=== PATIENT | male | born 1940 | race Caucasian/White ===

== ENCOUNTER → 2023-08-01 08:49 | Outpatient (BNVA) | payer MEDICARE, BC, SELFPAY | PROVIDERS: PCP Psychiatry & Neurology Neurology; Referring Provider Family Medicine; Visit Provider Psychiatry & Neurology Neurology | DX: G20.A1 Parkinson's disease without dyskinesia, without mention of fluctuations (principal); R29.2 Abnormal reflex; R35.1 Nocturia; G47.52 REM sleep behavior disorder; R49.8 Other voice and resonance disorders; I63.9 Cerebral infarction, unspecified | CPT/HCPCS: 99205 ==

== ENCOUNTER → 2023-10-10 10:26 | Outpatient (BNVA) | payer MEDICARE, BC, SELFPAY | PROVIDERS: PCP Psychiatry & Neurology Neurology; Referring Provider Psychiatry & Neurology Neurology; Visit Provider Psychiatry & Neurology Neurology | DX: G20.A1 Parkinson's disease without dyskinesia, without mention of fluctuations (principal); R29.2 Abnormal reflex; R35.1 Nocturia; G47.52 REM sleep behavior disorder; R49.8 Other voice and resonance disorders; I63.9 Cerebral infarction, unspecified | CPT/HCPCS: 99214 ==

== ENCOUNTER → 2024-02-18 10:59 | Outpatient (BNVA) | payer MEDICARE, BC, SELFPAY | PROVIDERS: PCP Family Medicine; Referring Provider Family Medicine; Visit Provider Psychiatry & Neurology Neurology | DX: G20.A1 Parkinson's disease without dyskinesia, without mention of fluctuations (principal); R29.2 Abnormal reflex; R35.1 Nocturia; G47.52 REM sleep behavior disorder; R49.8 Other voice and resonance disorders; I63.9 Cerebral infarction, unspecified | CPT/HCPCS: 99214 ==

== ENCOUNTER → 2024-09-17 15:11 | Outpatient (BNVA) | payer MEDICARE, SELFPAY | PROVIDERS: PCP Family Medicine; Referring Provider Family Medicine; Visit Provider Psychiatry & Neurology Neurology | DX: R29.2 Abnormal reflex (principal); G20.A1 Parkinson's disease without dyskinesia, without mention of fluctuations; R35.1 Nocturia; G47.52 REM sleep behavior disorder; R49.8 Other voice and resonance disorders; I63.9 Cerebral infarction, unspecified; E11.59 Type 2 diabetes mellitus with other circulatory complications; I10 Essential (primary) hypertension | CPT/HCPCS: 99214 ==

== ENCOUNTER → 2024-12-02 10:05 | Outpatient (BNVA) | payer MEDICARE, SELFPAY | PROVIDERS: PCP Family Medicine; Referring Provider Family Medicine; Visit Provider Psychiatry & Neurology Neurology | DX: G20.A1 Parkinson's disease without dyskinesia, without mention of fluctuations (principal); R29.2 Abnormal reflex; R35.1 Nocturia; G47.52 REM sleep behavior disorder; R49.8 Other voice and resonance disorders; I63.9 Cerebral infarction, unspecified; E11.59 Type 2 diabetes mellitus with other circulatory complications; I10 Essential (primary) hypertension | CPT/HCPCS: 99214 ==